=== PATIENT | male | born 1980 | race Caucasian/White ===

== ENCOUNTER 2020-04-11 19:04 | Emergency (ER) | payer SELFPAY ==
[2020-04-11] MEDS ORDERED: Ondansetron 4 MG Tab.DIS PO ONE (19:53)
--- NOTE | 2020-04-11 19:54 | EDM.PDOCBH ---
ED HPI GENERAL MEDICAL PROBLEM - General Chief Complaint: Drug or Alcohol Abuse Stated Complaint: ALCOHOL WITHDRAWAL/VOMITING Time Seen by Provider: 04/11/20 19:18 Source of Information: Reports: Patient History Limitations: Reports: No Limitations - History of Present Illness INITIAL COMMENTS - FREE TEXT/NARRATIVE: Mr. Olivas is a pleasant 39-year-old gentleman with a past medical history significant for untreated anxiety, depression, and ADHD, and a history of binge alcoholism, who now presents the ED with nausea, vomiting, and tremulousness after electing to stop drinking early this morning. The patient states that he typically drinks for 2 weeks, then remain sober for about 2 days, but he states that his current binge has been for about 3 months, following a 1.5-year period of sobriety. He states that he typically drinks a six-pack of beer plus 10 shots of Fireball per day, with his last drink early this morning. He states that he started having nausea and vomiting around 5 AM, which is the reason that he decided that he wanted to stop drinking this time. He then developed tremulousness around 17:30 this evening. The patient states that he has been drinking heavily since he was 23 years old. He has had withdrawal symptoms in the past that included hallucinations, but he has never had withdrawal seizures. He states that he has never had to be hospi talized due to drinking or withdraw from alcohol. He has been to inpatient treatment only once, around 1.5 years ago, but for only 4 days; he quit the program early. He states that he has been arrested twice for drunk and disorderly conduct, but he has never had a DUI. He has had loss of friendships, but no loss of job or divorce due to his drinking. The patient states that he was seen at the walk-in clinic earlier today, and that they gerald some blood and checked his urine. He was told that everything came back normal. He was given 1 L of IV fluid before being discharged home with a prescription for an antinausea medicine whose name he does not recall. Here in the ED, the patient's initial BP is found to be mildly elevated at 159/111, with a mild tachycardia of 104 bpm. He is afebrile, saturating 95% on room air. Other than today's nausea, vomiting, and tremulousness, the patient denies having a recent fever, chills, sore throat, ear pain, nasal or sinus congestion, cough, dyspnea, chest pain, palpitations, nausea, vomiting, constipation, diarrhea, abdominal pain, urinary symptoms, recent weight gain or weight loss, recent bloody bowel movements or black bowel movements, recent joint aches, headaches, or rashes. The patient does not recall the name of his PCP at [facility]. He has an appointment to see her for the first time tomorrow. Abdomen Pain Score (Numeric/FACES): 2 - Related Data Allergies Allergy/AdvReac Type Severity Reaction Status Date / Time No Known Allergies Allergy Verified 04/11/20 19:21 Home Meds: Home Meds . [No Known Home Meds] 04/11/20 [History] Past Medical History Psychiatric History: Reports: ADHD (untreated since a child), Addiction (alcohol), Anxiety (untreated since 2016), Depression (untreated since 2016) Endocrine/Metabolic History: Reports: Obesity/BMI 30+ - Past Surgical History HEENT Surgical History: Reports: Oral Surgery (Dental extractions) Social & Family History - Tobacco Use Smoking Status *Q: Never Smoker Tobacco Use Within Last Twelve Months: Smokeless Tobacco (Chews 1 can/day x 2007) - Caffeine Use Caffeine Use: Reports: None - Alcohol Use Alcohol Use History: Yes Days Per Week of Alcohol Use: 7 Number of Drinks Per Day: 16 Total Drinks Per Week: 112 Alcohol Use Frequency: Binges - Recreational Drug Use Recreational Drug Use: Yes Drug Use in Last 12 Months: No Recreational Drug Type: Reports: Marijuana/Hashish (last smoked 2004) - Living Situation & Occupation Living situation: Reports: Single, with Significant Other (Girlfriend), with Family (10 yr old daughter) Occupation: Employed ([employer]) ED ROS GENERAL - Review of Systems Review Of Systems: Comprehensive ROS is negative, except as noted in HPI. ED EXAM, BEHAVIORAL HEALTH - Physical Exam Exam: See Below Exam Limited By: No Limitations General Appearance: Alert, WD/WN, Mild Distress (Appears tremulous and nauseated) Eye Exam: Bilateral Eye: EOMI, Normal Inspection Ears: Normal External Exam, Hearing Grossly Normal Nose: Normal Inspection Throat/Mouth: Normal Inspection, Normal Lips, Normal Voice, No Airway Compromise Head: Atraumatic, Normocephalic Neck: Normal Inspection, Full Range of Motion Respiratory/Chest: No Respiratory Distress, Lungs Clear, Normal Breath Sounds, No Accessory Muscle Use Cardiovascular: Normal Peripheral Pulses, No Edema, No Gallop, No JVD, No Murmur, No Rub, Tachycardia (regular) GI/Abdominal: Normal Bowel Sounds, Soft, No Organomegaly, No Distention, No Abnormal Bruit, No Mass, Tender (Mild, midline only. Nontender elsewhere.) (Male) Exam: Deferred Rectal (Males) Exam: Deferred Back Exam: Normal Inspection, Full Range of Motion, NT Extremities: Normal Inspection, Normal Range of Motion, No Pedal Edema, Normal Capillary Refill Neurological: Alert, Normal Cognition, No Motor/Sensory Deficits, Oriented x 3, Other (Mildly tremulous) Psychiatric: Normal Affect Skin Exam: Warm, Intact, Normal color, No rash, Diaphoretic EKG INTERPRETATION EKG Date: 04/11/20 Time: 20:08 Rhythm: NSR Rate (Beats/Min): 97 [place]: Normal P-Wave: Enlarged (LAE) QRS: Normal ST-T: Normal QT: Normal Comparison: NA - No Prior EKG COURSE, BEHAVIORAL HEALTH COMP - Course Vital Signs: Last Vital Signs Temp 36.3 C 04/11/20 19:18 Pulse 93 04/11/20 23:15 Resp 18 04/11/20 23:15 BP 159/111 H 04/11/20 19:18 Pulse Ox 92 L 04/11/20 23:15 Orders, Labs, Meds: Laboratory Tests 04/11/20 04/11/20 04/11/20 Range/Units 19:40 20:10 20:10 WBC 8.36 (4.23-9.07) K/mm3 RBC 5.03 (4.63-6.08) M/mm3 Hgb 17.9 H (13.7-17.5) gm/dl Hct 50.1 (40.1-51.0) % MCV 99.6 H (79.0-92.2) fl MCH 35.6 H (25.7-32.2) pg MCHC 35.7 H (32.2-35.5) g/dl RDW Std Deviation 47.3 H (35.1-43.9) fL Plt Count 264 (163-337) K/mm3 MPV 8.4 L (9.4-12.3) fl Neutrophils % (Manual) 64 H (40-60) % Band Neutrophils % 0 (0-10) % Lymphocytes % (Manual) 31 (20-40) % Atypical Lymphs % 0 % Monocytes % (Manual) 4 (2-10) % Eosinophils % (Manual) 1 (0.8-7.0) % Basophils % (Manual) 0 L (0.2-1.2) Platelet Estimate Adequate Plt Morphology Comment Normal RBC Morph Comment Normal Sodium 138 (136-145) mEq/L Potassium 3.6 (3.5-5.1) mEq/L Chloride 99 (98-107) mEq/L Carbon Dioxide 23 (21-32) mEq/L Anion Gap 19.6 H (5-15) BUN 13 (7-18) mg/dL Creatinine 1.0 (0.7-1.3) mg/dL Est Cr Clr Drug Dosing 104.43 mL/min Estimated GFR (MDRD) > 60 (>60) mL/min BUN/Creatinine Ratio 13.0 L (14-18) Glucose 91 (74-106) mg/dL Calcium 9.0 (8.5-10.1) mg/dL Magnesium 1.4 L (1.8-2.4) mg/dl Total Bilirubin 1.1 H (0.2-1.0) mg/dL AST 62 H (15-37) U/L ALT 64 H (16-63) U/L Alkaline Phosphatase 91 (46-116) U/L Troponin I < 0.017 (0.00-0.056) ng/mL Total Protein 8.8 H (6.4-8.2) g/dl Albumin 4.4 (3.4-5.0) g/dl Globulin 4.4 gm/dL Albumin/Globulin Ratio 1.0 (1-2) Lipase 60 L (73-393) U/L TSH 3rd Generation 2.220 (0.358-3.74) uIU/mL Urine Opiates Screen Negative (BNPRME=486) Ur Buprenorphine Scrn Negative (CUTOFF=10) Ur Oxycodone Screen Negative (VEG2WW=181) Urine Methadone Screen Negative (SNS2OJ=090) Ur Propoxyphene Screen Negative (YGJPYL=883) Ur Barbiturates Screen Negative (PEVYTP=079) Ur Tricyclics Screen Negative (KEQQOK=701) Ur Phencyclidine Scrn Negative (CUTOFF=25) Ur Amphetamine Screen Negative (CNAVRK=405) U Methamphetamines Scrn Negative (LUNAKU=547) U Benzodiazepines Scrn Negative (TCUWQL=314) U Cocaine Metab Screen Negative (GZNMCH=918) U Marijuana (THC) Screen Negative (CUTOFF=50) Ethyl Alcohol 0.02 (0.00) gm% SARS CoV-2 RNA Rapid CHERYL (NEGATIVE) 04/11/20 Range/Units 21:24 WBC (4.23-9.07) K/mm3 RBC (4.63-6.08) M/mm3 Hgb (13.7-17.5) gm/dl Hct (40.1-51.0) % MCV (79.0-92.2) fl MCH (25.7-32.2) pg MCHC (32.2-35.5) g/dl RDW Std Deviation (35.1-43.9) fL Plt Count (163-337) K/mm3 MPV (9.4-12.3) fl Neutrophils % (Manual) (40-60) % Band Neutrophils % (0-10) % Lymphocytes % (Manual) (20-40) % Atypical Lymphs % % Monocytes % (Manual) (2-10) % Eosinophils % (Manual) (0.8-7.0) % Basophils % (Manual) (0.2-1.2) Platelet Estimate Plt Morphology Comment RBC Morph Comment Sodium (136-145) mEq/L Potassium (3.5-5.1) mEq/L Chloride (98-107) mEq/L Carbon Dioxide (21-32) mEq/L Anion Gap (5-15) BUN (7-18) mg/dL Creatinine (0.7-1.3) mg/dL Est Cr Clr Drug Dosing mL/min Estimated GFR (MDRD) (>60) mL/min BUN/Creatinine Ratio (14-18) Glucose (74-106) mg/dL Calcium (8.5-10.1) mg/dL Magnesium (1.8-2.4) mg/dl Total Bilirubin (0.2-1.0) mg/dL AST (15-37) U/L ALT (16-63) U/L Alkaline Phosphatase (46-116) U/L Troponin I (0.00-0.056) ng/mL Total Protein (6.4-8.2) g/dl Albumin (3.4-5.0) g/dl Globulin gm/dL Albumin/Globulin Ratio (1-2) Lipase (73-393) U/L TSH 3rd Generation (0.358-3.74) uIU/mL Urine Opiates Screen (WJSCBV=305) Ur Buprenorphine Scrn (CUTOFF=10) Ur Oxycodone Screen (USW8RY=080) Urine Methadone Screen (PGB9MH=507) Ur Propoxyphene Screen (MXDMNS=787) Ur Barbiturates Screen (GLTUDA=823) Ur Tricyclics Screen (QBVUAC=071) Ur Phencyclidine Scrn (CUTOFF=25) Ur Amphetamine Screen (MIXEOY=347) U Methamphetamines Scrn (QUUFXZ=882) U Benzodiazepines Scrn (ZJDEOT=067) U Cocaine Metab Screen (ZOYKZW=205) U Marijuana (THC) Screen (CUTOFF=50) Ethyl Alcohol (0.00) gm% SARS CoV-2 RNA Rapid CHERYL Negative (NEGATIVE) Medications Discontinued Medications Generic Name Dose Route Start Last Admin Trade Name Freq PRN Reason Stop Dose Admin Lactated Ringer's 1,000 mls @ 150 mls/hr 04/11/20 20:00 04/11/20 20:07 Ringers, Lactated IV 150 mls/hr ASDIRECTED SRINI Administration Magnesium Sulfate 2 gm/ Premix 50 mls @ 25 mls/hr 04/11/20 21:01 04/11/20 21:19 IV 04/11/20 23:00 25 mls/hr ONETIME ONE Administration Lorazepam 1 mg 04/11/20 20:00 04/11/20 20:34 Ativan IVPUSH 04/11/20 20:01 1 mg ONETIME STA Administration Ondansetron HCl 4 mg 04/11/20 19:53 04/11/20 20:55 Zofran Odt PO 04/11/20 19:54 Not Given ONETIME ONE Ondansetron HCl 4 mg 04/11/20 19:56 04/11/20 20:08 Zofran IVPUSH 04/11/20 19:57 4 mg ONETIME ONE Administration Thiamine HCl 1 mg 04/11/20 19:57 04/11/20 20:07 Vitamin B-1 IVPUSH 04/11/20 19:58 1 mg ONETIME STA Administration Medical Clearance: 04/11/20 19:52 As above, the patient has a history of binge alcoholism, with his most recent binge for the past 3 months and his last drink early this morning. He presents with nausea and vomiting that began around 5:00 this morning, and tremulousness that developed about 2 hours ago. He is mildly hypertensive and tachycardic, but afebrile. His oxygen saturation is 95% on room air. Other than tremulousness and tachycardia, his physical exam is remarkable for mild midline abdominal tenderness, with the remainder of his examination being unremarkable. I explained to the patient that despite his having an evaluation at the walk-in clinic earlier today, we do not have access to that work-up, therefore we will need to draw our own set of labs, including a urine drug screen. I explained to the patient that I will treat him with some Ativan, but not until he has provided a urine sample, because I do not want it to be contaminated. The patient expressed understanding. As I was entering orders, I was notified by Taina MEYERS that the patient decided that he wanted to go home. I canceled the orders that I had already entered, but a moment later was notified by Taina MEYERS again that the patient changed his mind, and he is now willing to stay, but is hoping that we can somehow wrap everything up in about half an hour. She explained to him that that is not possible. He is apparently still willing to stay. I have therefore reentered orders that includes blood work, a urine drug screen, a chest x-ray, an ECG, and a swab for the SARS-CoV-2 virus. In the meantime, the patient will be given IV fluid, IV thiamine, IV Zofran, and, once he provides a urine sample, IV Ativan. 04/11/20 21:01 Two-view chest radiograph reviewed. Poor inspiratory effort. The cardiac silho uette is at the upper limits of normal. No pulmonary vascular congestion. No pleural effusions. No focal infiltrate. No pneumothorax. Formal read per the Radiologist pending. The patient's CBC is remarkable for a Hgb elevated at 17.9, but with a Hct normal at 50.1, and the remainder of his CBC being unremarkable. His CMP is remarkable for an anion gap elevated at 19.6, but with a bicarbonate normal at 23. His TBil is slightly elevated at 1.1, and his AST/ALT are slightly elevated at 62/64, respectively, with the remainder of his CMP being unremarkable. His magnesium level is significantly depressed at 1.4. His lipase level is within normal limits at 60. His troponin is undetectably low. His EtOH level is 0.02. His urine drug screen is completely negative. Results of his swab for the SARS-CoV-2 virus are still pending. Based on the above, I have ordered a 2 g Mg-rider. 04/11/20 21:56 The patient's swab for the SARS-CoV-2 virus returned negative. 04/11/20 22:13 Test results discussed with the patient. He acknowledges that he is still somewhat tremulous, but he states that he feels a lot better than when he first arrived. I explained to the patient that the purpose for today's work-up is to determine if he is at an increased risk for the development of DTs, should he remain abstinent. Because he is having some withdrawal symptoms despite having alcohol in his blood, I find that he is at a mildly increased risk for the development of DTs. Factors in his favor are his relatively young age, a binge pattern of alcoholism, no prior history of DTs, and no concomitant illness, such as pneumonia. Nevertheless, I recommended that he be placed into observation, likely for a couple of days, to see if his CIWA score rises or falls, during which time he can be treated for vomiting and be given IV fluid. He could also be evaluated by manager case, who could refer him to an inpatient treatment program. All of this, however, would be predicated on his desire to stop drinking. There is no purpose for going through all of that if he does not truly want to stop drinking. The patient stated that he wants to stop drinking, but had earlier acknowledged that the reason he stopped this morning was because he developed nausea vomiting, not because he truly wanted to stop drinking. The patient acknowledges that he is not at a place where he truly wants to stop drinking yet. He therefore declined the offer of placement into observation. With respect to Ativan or Librium, I explained to the patient that the purpose for giving benzodiazepines to a patient with alcohol withdraw is to prevent DTs in those patients who are at risk for the development of DTs, not to simply make the patient feel better. For that reason, I explained that I do not prescribe benzodiazepines for patients to take on an outpatient basis; if they are truly at risk for the development of DTs, they need to be hospitalized. If they are not at risk for the development of DTs, then they do not need benzodiazepines. The patient expressed understanding. The patient's Mg-rider is about half infused. The plan is to finish the infusion, after which time he will be discharged home with a referral to [facility]. I reminded him that we are open 17/02, and that if he changes his mind, he can always return to the ED. Departure - Departure Time of Disposition: 23:14 Disposition: Home, Self-Care 01 Condition: Good Clinical Impression: Alcohol dependence, binge pattern, Nausea & vomiting, Tremulousness, Hypomagnesemia - Discharge Information *PRESCRIPTION DRUG MONITORING PROGRAM REVIEWED*: Not Applicable *COPY OF PRESCRIPTION DRUG MONITORING REPORT IN PATIENT SHMUEL: Not Applicable Instructions: Alcohol Abuse and Dependence Information, Adult, Hypomagnesemia Referrals: PCP,Unknown [Ordering Only Provider] - Additional Instructions: You were seen in the emergency room after developing nausea, vomiting, and shakiness after discontinuing drinking early this morning. Work-up in the ER included blood work, a urine drug screen, a chest x-ray, an ECG, and a swab for the SARS-CoV-2 virus. Your work-up found your alcohol level to be mildly elevated at 0.02 (for reference, the legal upper limit for driving is 0.08), and your magnesium level was found to be significantly depressed at 1.4. The remainder of your work-up was unremarkable. You were given IV magnesium replacement in the ER, along with IV fluid, antinausea medicine, IV thiamine, and IV Ativan. Placement into observation to determine if you were at risk for the development of delirium tremens was offered, but declined. We recommend that you stay adequately hydrated, do not resume drinking alcohol, then follow-up at [facility]: [address] [place] [phone] If you change your mind, and would like to be placed in observation, please do not hesitate to return to the ER for reevaluation. Sepsis Event Note (ED) - Evaluation Sepsis Screening Result: No Definite Risk - Focused Exam Vital Signs: Vital Signs Temp Pulse Resp BP Pulse Ox 04/11/20 23:15 93 18 92 L 04/11/20 19:18 36.3 C 104 H 20 159/111 H 95
[2020-04-11] MEDS ORDERED: Ondansetron 4 MG/2 ML SDV IVPUSH ONE (19:56)
[2020-04-11] MEDS ORDERED: Thiamine 200 MG/2 ML MDV IVPUSH STA (19:57)
[2020-04-11] MEDS ORDERED: Lactated Ringers 1,000 ML IV SCH (20:00)
[2020-04-11] MEDS ORDERED: LORazepam 2 MG/ML SDV IVPUSH STA (20:00)
[2020-04-11] MEDS ORDERED: Magnesium Sulfate/Water 2 GM in Premix Bag 1 BAG IV ONE (21:01)
--- NOTE | 2020-04-11 21:19 | CR ---
Chest: 2 views of the chest were obtained. Comparison: No prior chest imaging is available. Heart size and mediastinum are normal. Lungs are clear with no acute parenchymal change. Bony structures are unremarkable. Impression: 1. Nothing acute is seen on 2 view chest x-ray. Diagnostic code #1 This report was dictated in MDT
== END 2020-04-11 23:20 | disposition home or self-care (01) ==
LOC: JD.ED 19:04
DX: F10.20 Alcohol dependence, uncomplicated (principal); F50.81 Binge eating disorder; E83.42 Hypomagnesemia; R25.1 Tremor, unspecified; R11.2 Nausea with vomiting, unspecified; E66.9 Obesity, unspecified; F17.220 Nicotine dependence, chewing tobacco, uncomplicated; Z68.36 Body mass index [BMI] 36.0-36.9, adult; Z20.828 Contact with and (suspected) exposure to other viral communicable diseases
CPT/HCPCS: 36415; 71046; 71046-26; 80053; 80306; 80307; 83690; 83735; 84443; 84484; 85007; 85027; 93005; 96361; 96365; 96366; 96375; 99285-25; J2060; J2405; J3411; J3475; J7120; U0002